=== PATIENT | male | born 1980 | race Caucasian/White ===

== ENCOUNTER 2016-09-20 08:07 | Emergency (ER) | payer MEDICAID ==
[~2016-09-20] VITALS: Wt 89.0 kg
[~2016-09-20 08:07] MED LIST: ALBU8.5H3 INH; GUAI600T21 PO; PROM6.25 PO
[2016-09-20] MEDS ORDERED: ALBU8.5H3 INH (08:24)
[2016-09-20] MEDS ORDERED: D-ME473S2 PO (08:24)
--- NOTE | 2016-09-20 08:27 | ERD ---
ER Documentation Chief Complaint Date/Time DATE: 09/20/16 TIME: 08:24 Chief Complaint cough and wheezing since last night. worse this am. mild distress HPI Patient is a 36-year-old male who presents to the emergency department with a cough and wheezing 2 days. Patient states that his cough is productive in nature with occasional yellow to green phlegm production. Patient also reports some nasal congestion and rhinorrhea. Patient denies any fever, chills, nausea , vomiting, chest pain, shortness of breath, loss of consciousness. Patient denies any throat pain, ear pain, body aches. Patient has taken Motrin for his symptoms. She reports sick contact of daughter. No recent travel. Patient is requesting an albuterol inhaler at this time given that it has helped him in the past. ROS All systems reviewed and are negative except as per history of present illness. Medications Home Meds Active Scripts Albuterol Sulfate* (Proair HFA*) 8.5 Gm Hfa.aer.ad, 2 PUFF INH Q6H Y for WHEEZING AND SOB, #1 INHALER Prov:ARIAS CHANDLER PA-C 09/20/16 Dextromethorphan Hb-Promethazine Hcl* (Promethazine DM* Syrup) 473 Ml Syrup, 5 ML PO Q6 Y for COUGH, #1 BOTTLE Prov:ARIAS CHANDLER PA-C 09/20/16 Albuterol Sulfate* (Proair HFA*) 8.5 Gm Hfa.aer.ad, 2 PUFF INH Q4, #1 INHALER Prov:KURT GALLAGHER NP 09/16/15 Promethazine Hcl* (Phenergan* Liq) 6.25 Mg/5 Ml Syrup, 12.5 MG PO Q6H Y for COUGH for 5 Days, ML Prov:KURT GALLAGHER NP 09/16/15 Reported Medications Guaifenesin* (Mucinex*) 600 Mg Tablet.sa, 1200 MG PO NEEDED 09/13/12 Allergies Allergies: Coded Allergies: No Known Allergy (Unverified , 09/13/12) PMhx/Soc History of Surgery: No Anesthesia Reaction: No Hx Neurological Disorder: No Hx Respiratory Disorders: No Hx Cardiac Disorders: No Hx Psychiatric Problems: No Hx Miscellaneous Medical Probl: No Hx Alcohol Use: No Hx Substance Use: No Hx Tobacco Use: No FmHx Family History: diabetes Physical Exam Vitals Vital Signs Date Time Temp Pulse Resp B/P Pulse Ox O2 Delivery O2 Flow Rate FiO2 09/20/16 08:10 98.5 84 22 138/94 96 Physical Exam GENERAL: Well-developed, well-nourished male. Appears in no acute distress. No signs of respiratory distress including abdominal retractions, nasal flaring, tripoding. HEAD: Normocephalic, atraumatic. No deformities or ecchymosis. EYE: Pupils equal, round, and reactive to light. EOMs intact. No conjunctival erythema. No eye discharge. ENT: External ear without any masses or tenderness. Auditory canals clear bilaterally. TM visualized bilaterally, non-erythematous, non-bulging. Nasal mucosa pink with no discharge. Oropharynx is pink without any tonsillar erythema or exudates. No uvula deviation. No kissing tonsils. NECK: Supple. No meningismus. Normal ROM of the neck. LUNG: Clear to auscultation bilaterally. No rhonchi, wheezing, rales or coarse breath sounds. HEART: Regular rate and rhythm. No murmurs, rubs or gallops. ABDOMEN: Soft, nontender, and nondistended. Positive bowel sounds in all four quadrants. No rebound tenderness, no guarding. (-) McBurney's point tenderness. No CVA tenderness. BACK: No midline tenderness. EXTREMITES: Equal pulses bilaterally. No peripheral clubbing, cyanosis or edema. No unilateral leg swelling. NEUROLOGIC: Alert and oriented to person, place and time. Moving all four extremities. 5/5 strength in all extremities. Normal speech. Steady gait. SKIN: Normal color. Warm and dry. No rashes or lesions. Procedures/MDM MEDICAL DECISION MAKING: This is a 36-year-old male who presents with a cough and wheezing 2 days. Vital signs were reviewed. Patient was afebrile. Patient was not hypoxic. ENT exam was normal. Lung exam was normal. No wheezing at this time. Given these findings, the patient's presentation is most consistent with viral URI. I have a much lower clinical concern for bacterial infections including pneumonia, meningitis, sinusitis, otitis externa, acute otitis media, strep pharyngitis, epiglottitis or peritonsillar abscess. PRESCRIPTIONS: Albuterol inhaler, Promethazine DM cough syrup DISCHARGE: At this time, patient is stable for discharge and outpatient management. Supportive therapies such as OTC throat lozenges, salt water gurgles, popsicles and jello discussed. I have instructed the patient to follow-up with his/her primary care physician in 1-2 days. I have instructed the patient to promptly return to the ER for any new or worsening symptoms including increased pain, swelling, fever, nausea, vomiting, weakness or difficulty breathing. The patient and/or family expressed understanding of and agreement with this plan. All questions were answered. Home care instructions were provided. Departure Diagnosis: Primary Impression: Viral URI Condition: Stable Patient Instructions: Uri, Viral, No Abx (Adult) Referrals: [facility] YOU HAVE RECEIVED A MEDICAL SCREENING EXAM AND THE RESULTS INDICATE THAT YOU DO NOT HAVE A CONDITION THAT REQUIRES URGENT TREATMENT IN THE EMERGENCY DEPARTMENT. FURTHER EVALUATION AND TREATMENT OF YOUR CONDITION CAN WAIT UNTIL YOU ARE SEEN IN YOUR DOCTORS OFFICE WITHIN THE NEXT 1-2 DAYS. IT IS YOUR RESPONSIBILITY TO MAKE AN APPOINTMENT FOR FOLOW-UP CARE. IF YOU HAVE A PRIMARY DOCTOR --you should call your primary doctor and schedule an appointment IF YOU DO NOT HAVE A PRIMARY DOCTOR YOU CAN CALL OUR PHYSICIAN REFERRAL HOTLINE AT IF YOU CAN NOT AFFORD TO SEE A PHYSICIAN YOU CAN CHOSE FROM THE FOLLOWING [facility] [address] [facility] [address] [facility] [facility] [address] [facility] [address] [facility]. [facility] [address] [facility]. [facility]. [address] [facility]. [facility] YOU HAVE RECEIVED A MEDICAL SCREENING EXAM AND THE RESULTS INDICATE THAT YOU DO NOT HAVE A CONDITION THAT REQUIRES URGENT TREATMENT IN THE EMERGENCY DEPARTMENT. FURTHER EVALUATION AND TREATMENT OF YOUR CONDITION CAN WAIT UNTIL YOU ARE SEEN IN YOUR DOCTORS OFFICE WITHIN THE NEXT 1-2 DAYS. IT IS YOUR RESPONSIBILITY TO MAKE AN APPOINTMENT FOR FOLOW-UP CARE. IF YOU HAVE A PRIMARY DOCTOR --you should call your primary doctor and schedule and appointment IF YOU DO NOT HAVE A PRIMARY DOCTOR YOU CAN CALL OUR PHYSICIAN REFERRAL HOTLINE AT . IF YOU CAN NOT AFFORD TO SEE A PHYSICIAN YOU CAN CHOSE FROM THE FOLLOWING [facility] INSTITUTIONS: [facility] [address] [place] [address] [facility] [address] [place] [address] [facility] + [facility] [address] [place] [address] Additional Instructions: Call your primary care doctor TOMORROW for an appointment during the next 1-2 days.See the doctor sooner or return here if your condition worsens before your appointment time. ARIAS CHANDLER PA-C Sep 20, 2016 08:27
== END 2016-09-20 08:47 | disposition home or self-care (01) ==
LOC: FTE 08:07
DX: J06.9 Acute upper respiratory infection, unspecified (principal)
CPT/HCPCS: 99284

== ENCOUNTER 2017-03-24 20:40 | Emergency (ER) | payer MEDICAID ==
[~2017-03-24] VITALS: Ht 165.1 cm; Wt 90.9 kg
[~2017-03-24 20:40] MED LIST changes: +D-ME473S2 PO
[2017-03-24 20:48] VITALS: Ht 165.1 cm; Wt 90.9 kg
[2017-03-24] MEDS ORDERED: ACETAMINOPHEN 500 MG TAB PO STA (21:29)
--- NOTE | 2017-03-24 21:38 | ERD ---
ER Documentation Chief Complaint Date/Time DATE: 03/24/17 TIME: 21:35 Chief Complaint LAC TO LT EYEBROW FROM PC OF WOOD. UNKNOWN LAST TETANUS HPI This a 36-year-old male presents to the emergency department today for a laceration above his left eyebrow. States that he was working on a piece of wood fell on his head. States he has a slight headache but denies any loss of consciousness, dizziness, blurred vision, nausea or vomiting. States is not taking any medication for the pain. States he is unsure when his last tetanus vaccine was. ROS All systems reviewed and are negative except as per history of present illness. Medications Home Meds Active Scripts Acetaminophen* (Tylophen*) 500 Mg Capsule, 1 CAP PO Q6H Y for PAIN AND OR ELEVATED TEMP, #30 CAP Prov:MAKSIM DOHERTY PA-C 03/24/17 Albuterol Sulfate* (Proair HFA*) 8.5 Gm Hfa.aer.ad, 2 PUFF INH Q6H Y for WHEEZING AND SOB, #1 INHALER Prov:ARIAS CHANDLER PA-C 09/20/16 Dextromethorphan Hb-Promethazine Hcl* (Promethazine DM* Syrup) 473 Ml Syrup, 5 ML PO Q6 Y for COUGH, #1 BOTTLE Prov:ARIAS CHANDLER PA-C 09/20/16 Albuterol Sulfate* (Proair HFA*) 8.5 Gm Hfa.aer.ad, 2 PUFF INH Q4, #1 INHALER Prov:KURT GALLAGHER NP 09/16/15 Promethazine Hcl* (Phenergan* Liq) 6.25 Mg/5 Ml Syrup, 12.5 MG PO Q6H Y for COUGH for 5 Days, ML Prov:KURT GALLAGHER NP 09/16/15 Reported Medications Guaifenesin* (Mucinex*) 600 Mg Tablet.sa, 1200 MG PO NEEDED 09/13/12 Allergies Allergies: Coded Allergies: No Known Allergy (Unverified , 03/24/17) PMhx/Soc Medical and Surgical Hx: pt denies Medical Hx, pt denies Surgical Hx History of Surgery: No Anesthesia Reaction: No Hx Neurological Disorder: No Hx Respiratory Disorders: No Hx Cardiac Disorders: No Hx Psychiatric Problems: No Hx Miscellaneous Medical Probl: No Hx Alcohol Use: No Hx Substance Use: No Hx Tobacco Use: No Physical Exam Vitals Vital Signs Date Time Temp Pulse Resp B/P Pulse Ox O2 Delivery O2 Flow Rate FiO2 03/24/17 20:48 97.7 84 18 133/93 96 Physical Exam Const: No acute distress Head: 2 cm laceration above left eyebrow that is superficial. Bleeding well controlled. No purulent drainage. Eyes: Normal Conjunctiva. PERRLA. EOM intact. ENT: Normal External Ears, Nose and Mouth. Neck: Full range of motion..~ No meningismus. Resp: Clear to auscultation bilaterally Cardio: Regular rate and rhythm, no murmurs Abd: Soft, non tender, non distended. Normal bowel sounds Skin: No petechiae or rashes Back: No midline or flank tenderness Ext: No cyanosis, or edema. No focal neurologic deficits. No gait ataxia. Neur: Awake and alert Psych: Normal Mood and Affect Results 24 hrs Current Medications Medications (Trade) Dose Ordered Sig/Fatimah Route PRN Reason Start Time Stop Time Status Last Admin Dose Admin Acetaminophen (Tylenol Tab) 500 mg ONCE STAT PO 03/24/17 21:29 03/24/17 21:31 DC 03/24/17 21:48 Diphtheria/ Tetanus/Acell Pertussis (Adacel) 0.5 ml ONCE ONCE IM* 03/24/17 22:00 03/24/17 22:01 DC 03/24/17 21:55 Procedures/MDM This is a 42-year-old male who presents the emergency department today for a laceration he sustained earlier this evening after a piece of wood fell on his head. On physical exam patient has evidence of a 2 cm laceration that is vertical above his left eyebrow and into his left eyebrow. Wound appears to be superficial at this time I do not feel the patient requires sutures. I do feel that the wounds were closed well with Dermabond. I have explained this to the patient. The wound was cleaned here in the emergency department. Patient was given a tetanus update. Patient is afebrile and otherwise well-appearing. Low suspicion for sepsis, cellulitis or deep space infection. There is no evidence of foreign body. Patient complaint of a slight headache however he denies any loss of consciousness or nausea or vomiting. He has no focal neurologic deficits and no gait ataxia and I do not feel the patient requires a head CT scan at this time. Low suspicion for acute hemorrhage, mass, abscess, meningitis Patient is given Tylenol here in the emergency department. He will be given a prescription for Tylenol for home. Patient was instructed to return in 48 hours for a wound check. At this time the patient is stable for discharge and outpatient management. Patient should follow up with their PCP in the next 1-2 days. They may return to the emergency department sooner for any persistent or worsening of symptoms. Patient understood and agreed with the plan. Dr. Crane has seen and evaluated the patient and is in agreement with the plan. Departure Diagnosis: Primary Impression: Laceration Condition: Fair MAKSIM DOHERTY PA-C Mar 24, 2017 21:37
[2017-03-24] MEDS ORDERED: DIPHTH/TET/ACEL PERTUSS (ADULT) 0.5 ML VIAL IM* ONE (22:00)
[2017-03-24] MEDS ORDERED: ACET500C5 PO (22:10)
[2017-03-24 22:28] VITALS: BP 136/93; PULSE 77; RESP 16
== END 2017-03-24 22:29 | disposition home or self-care (01) ==
LOC: FTE 20:40
DX: S01.112A Laceration without foreign body of left eyelid and periocular area, initial encounter (principal); W20.8XXA Other cause of strike by thrown, projected or falling object, initial encounter; Y92.89 Other specified places as the place of occurrence of the external cause; Z23 Encounter for immunization
CPT/HCPCS: 12011; 90471; 90715; Z7502; Z7610

== ENCOUNTER 2017-09-14 15:08 | Emergency (ER) | END 2017-09-14 16:12 | disposition home or self-care (01) ==

== ENCOUNTER 2018-11-17 07:05 | Emergency (ER) | payer MEDICAID ==
[~2018-11-17] VITALS: Ht 167.6 cm; Wt 99.6 kg
[~2018-11-17 07:05] MED LIST changes: +ACET500C5 PO; +ALBU18HF INHALATION; -ALBU8.5H3 INH; +ALBU8.5H8 INH; +BENZ200C68 PO; +FLUT9.9S NASAL; +IBUP800T48 PO; +LORA10CA PO; -PROM6.25 PO; +PROM6.256 PO
[2018-11-17 07:11] VITALS: BP 145/96; PULSE 62; RESP 17; Ht 167.6 cm; Wt 99.6 kg
[2018-11-17] MEDS ORDERED: KETOROLAC 30 MG INJ IM STA (08:09)
--- NOTE | 2018-11-17 08:15 | ERD ---
ER Documentation Chief Complaint Chief Complaint lower back pain x yesterday denies pain with urination HPI 38-year-old male with no reported past medical or surgical history who comes in for complaint of right-sided lower back pain since yesterday. States he has a constant sharp pain with radiation to mid right thigh. Denies previous history of chronic back pain or acute injury. He denies red flag symptoms such as numbness or paresthesias of affected extremity, urinary or bowel incontinence, saddle anesthesia. He is otherwise without complaint. He is able to ambulate without issue although walking long distances makes pain worse. Had a similar episode 2 years ago saw a chiropractor for his symptoms. ROS All systems reviewed and are negative except as per history of present illness. Medications Home Meds Active Scripts Acetaminophen* (Tylophen*) 500 Mg Capsule, 2 CAP PO Q8H PRN for PAIN AND OR ELEVATED TEMP, #20 CAP Prov:MECHE BOUCHER MD 04/12/18 Ibuprofen* (Motrin*) 800 Mg Tab, 800 MG PO Q6H PRN for PAIN AND OR ELEVATED TEMP, #15 TAB Prov:MECHE BOUCHER MD 04/12/18 Loratadine* (Claritin*) 10 Mg Capsule, 10 MG PO DAILY, #30 CAP Prov:DORITA MUNGUIA PA-C 09/14/17 Benzonatate* (Benzonatate*) 200 Mg Capsule, 200 MG PO TID PRN for COUGH, #15 CAP Prov:DORITA MUNGUIA PA-C 09/14/17 Fluticasone Propionate (Flonase Allergy Relief) 9.9 Ml [place].susp, 1 SPRAY NASAL DAILY, #1 BOTTLE TO EACH NOSTRIL Prov:DORITA MUNGUIA PA-C 09/14/17 Albuterol Sulfate* (Ventolin HFA*) 18 Gm Hfa.aer.ad, 2 PUFF INHALATION Q4H, #1 INHALER Prov:DORITA MUNGUIA PA-C 09/14/17 Acetaminophen* (Tylophen*) 500 Mg Capsule, 1 CAP PO Q6H PRN for PAIN AND OR ELEVATED TEMP, #30 CAP Prov:MAKSIM DOHERTY PA-C 03/24/17 Albuterol Sulfate* (Proair HFA*) 8.5 Gm Hfa.aer.ad, 2 PUFF INH Q6H PRN for WHEEZING AND SOB, #1 INHALER Prov:ARIAS CHANDLER PA-C 09/20/16 Dextromethorphan Hb-Promethazine Hcl* (Promethazine DM* Syrup) 473 Ml Syrup, 5 ML PO Q6 PRN for COUGH, #1 BOTTLE Prov:ARIAS CHANDLER PA-C 09/20/16 Albuterol Sulfate* (Proair HFA*) 8.5 Gm Hfa.aer.ad, 2 PUFF INH Q4, #1 INHALER Prov:KURT GALLAGHER ROUSTABOUT HAND 09/16/15 Promethazine Hcl* (Phenergan* Liq) 6.25 Mg/5 Ml Syrup, 12.5 MG PO Q6H PRN for COUGH for 5 Days, ML Prov:KURT GALLAGHER ROUSTABOUT HAND 09/16/15 Reported Medications Guaifenesin* (Mucinex*) 600 Mg Tablet.sa, 1200 MG PO NEEDED 09/13/12 Allergies Allergies: Coded Allergies: No Known Allergy (Unverified , 03/24/17) PMhx/Soc History of Surgery: No Anesthesia Reaction: No Hx Neurological Disorder: No Hx Respiratory Disorders: No Hx Cardiac Disorders: No Hx Psychiatric Problems: No Hx Miscellaneous Medical Probl: No Hx Alcohol Use: No Hx Substance Use: No Hx Tobacco Use: No Smoking Status: Never smoker FmHx Family History: No diabetes, No coronary disease, No other Physical Exam Vitals Vital Signs Date Temp Pulse Resp B/P (MAP) Pulse Ox O2 O2 Flow FiO2 Time Delivery Rate 11/17/18 96.8 62 17 145/96 98 07:11 (112) Physical Exam I have reviewed the triage vital signs. Const: Well nourished, well developed, appears stated age Eyes: PERRL, no conjunctival injection HENT: NCAT, Neck supple without meningismus CV: RRR, Warm, well-perfused extremities RESP: CTAB, Unlabored respiratory effort GI: soft, non-tender, non-distended, no masses MSK: No gross deformities appreciated, no spinal tenderness, negative straight leg test. 5/5 strength throughout bilateral lower extremity. SILT bilateral lower extremity Skin: Warm, dry. No rashes Neuro: grossly non focal Psych: Appropriate mood and affect. Results 24 hrs Current Medications Medications Dose Sig/Fatimah Start Time Status Last (Trade) Ordered Route PRN Stop Time Admin Dose Reason Admin Ketorolac 30 mg ONCE STAT 11/17/18 DC Tromethamine IM 08:09 (Toradol) 11/17/18 08:10 10 mg ONCE ONCE 11/17/18 Dexamethasone IM 08:30 (Decadron) 11/17/18 08:31 Procedures/MDM 38-year-old healthy male presented with complaint of right-sided lower back pain. No history of injury or chronic back pain. Low suspicion for acute cord compression or cauda equina at this time, given presentation and symptoms, including epidural abscess or hematoma. Patient has no history of malignancy, active or distant history. Patient has no unexplained weight loss. No recent fevers, rigors, malaise, or recent infection. No history of IVDU or skin- popping. Patient does not have any history concerning for saddle anesthesia/perianal sensory loss or complaining of decreased rectal tone. Patient does not have urinary retention or inability to control urine from overflow. Patient has no tenderness overlying spinous process. Patient has no focal weakness on examination. ED course: Toradol and single dose of Decadron Plan: Appropriate pain medication and PMD follow-up Given exam and history, low suspicion for cord compression, cauda equina, epidural abscess/hematoma. Distally neurovascularly intact. Query likely musculoskeletal component. Discussed pain control,and follow up with PMD. Cautious return precautions discussed w/ full understanding Departure Condition: Stable HAN ESTRADA PA-C Nov 17, 2018 08:15
[2018-11-17] MEDS ORDERED: PRED20TA PO (08:16)
[2018-11-17] MEDS ORDERED: NAPR-985 PO (08:16)
[2018-11-17] MEDS ORDERED: DEXAMETHASONE 10 MG/ML 1 ML INJ IM ONE (08:30)
== END 2018-11-17 08:25 | disposition home or self-care (01) ==
LOC: FTE 07:05
DX: M54.5 Low back pain (principal)
CPT/HCPCS: 96372; J1100; J1885; Z7502